=== PATIENT | female | born 1990 | race Hispanic/Latino ===

== ENCOUNTER 2016-05-29 17:45 | Emergency (ER) | payer OTHER ==
[~2016-05-29] VITALS: Ht 154.9 cm; Wt 80.0 kg
[2016-05-29 17:49] VITALS: BP 113/70; PULSE 89; RESP 10; O2SAT 100
[2016-05-29 19:33] VITALS: BP 130/72; PULSE 75; RESP 18; O2SAT 100
--- NOTE | 2016-05-29 20:27 | ED.REPORT ---
HPI-Rash / Abscess Date of Service May 29, 2016 ED Provider: Jacquie Barclay MD This is a 26 year old female presenting to the emergency department complaining of diffuse skin rash to chest and face that began yesterday. Associated with tactile fever and myalgias that began 2 days ago. Tylenol and ibuprofen provided mild relief. Pt took Claritin yesterday which provided complete relief. However, the rash returned today. Denies shortness of breath, difficulty swallowing, sore throat, or throat swelling. Denies changes in household products or exposure to new topical agents. Nursing Notes Stated Complaint: RASH STARTING YESTERDAY Chief Complaint: Allergic Reaction Nursing Notes Reviewed: Yes Allergies: Coded Allergies: No Known Allergies (Unverified , 05/29/16) Scheduled Prednisone (PredniSONE) 20 Mg Tablet 40 MG PO DAILY General Time Seen by MD: 19:51 Chief Complaint Rash Hx Obtained From: Patient Arrived By: Walk-in Onset Occurred: 2 days ago Symptom Duration: Since onset Severity: Current: No pain currently Pertinent Negative: Pt denies other symptoms Recent Healthcare: No recent doctor visit, No recent hospitalization Similar Sx Previous: No Past Medical History Past Medical History Denies Past Surgical History Denies Ambulatory Status Independent Review of Systems Constitutional: Reports: Fever, Denies: Chills Respiratory: Denies: Non-productive cough, Wheezing Cardiovascular: Denies: Chest pain GI: Denies: Abdominal pain, Nausea, Vomiting Musculoskeletal: Denies: Extremity pain Skin: Reports Itching, Reports Rash, Denies Swelling Complete sys rev & neg: except as marked. Physical Exam Initial Vital Signs Vital Signs (First) Date Time Temp Pulse Resp B/P Pulse Ox O2 Delivery O2 Flow Rate FiO2 05/29/16 17:49 37.2 89 10 113/70 100 Room Air Initial VS: Reviewed Head / Eyes: Atraumatic, Normocephalic, PERRL Neck: Supple, Non-tender, Full range of motion Cardiovascular: Regular rate & rhythm, Heart sounds normal, Intact distal pulses Abdomen / GI: Soft, Non-tender, No guarding, No rebound, No distention Extremities: Vascular intact, Neuro intact, No swelling, No tenderness Neurologic: Alert, Oriented, Nonfocal Psychiatric: Mood/affect normal, Behavior normal, Normal thought content General/Constitutional: Awake, Alert, No acute distress Skin: Warm Mild erythema to back of neck, chest, and face without edema. No excoriation. ENT: Airway patent, Mucous membranes moist, Pharynx NL Respiratory / Chest: Breath sounds NL, Breath sounds = bilat, No respiratory distress, No rales, No rhonchi, No wheezing Interpretation & Diagnostics Lab Results Interpretation Test 05/29/16 20:34 Hold Urine Received (Received) Re-Eval/Medical Decision Med Decision/Clinical Course 26-year-old female with no past medical history here with rash. Differential diagnosis includes but is not limited to contact dermatitis versus localized allergic reaction versus viral exanthem versus other dermatitis. Patient was given Benadryl in the emergency department with some but not complete resolution of her rash. She was given a prescription for prednisone and advised to take Benadryl at home until the rash resolved. She is aware and amenable to discharge at this time with follow-up with her primary care physician, has been given very strict return precautions. Re-Evaluation/Progress : Time of Eval: 22:26 Re-Evaluation/Progress Note: Re-checked, rash is resolved, plan for d/c, all questions addressed Counseled Regarding: Diagnosis, Need for follow-up, When/why to return to ED Discharge & Departure Impression: Primary Impression: Rash Disposition: Home Discharge Condition All VS Reviewed: Yes Condition: Stable Patient Instructions: Acute Rash (ED) Additional Instructions: Take prednisone as prescribed. Also take benadryl as needed. Follow-up with your primary care provider. Return to the emergency department for any new or worsening symptoms Referrals: NOPCP (PCP) Scribe Attestation Portions of this note were transcribed by Sosa Clark. I, Dr. Barclay personally performed the history, physical exam and medical decision-making; I reviewed and confirmed the accuracy of the information in the transcribed note. Signed by: milagro Alcantara. 05/29/2016, 23:00. Jacquie Barclay MD May 29, 2016 20:27 SOSA CLARK May 29, 2016 20:30
[2016-05-29] MEDS ORDERED: diphenhydrAMINE 50 mg Capsule PO ONE (20:30)
[2016-05-29] MEDS ORDERED: diphenhydrAMINE 25 mg Capsule PO ONE (20:55)
[2016-05-29 21:17] VITALS: BP 133/65; PULSE 87; RESP 18; O2SAT 100
[2016-05-29] MEDS ORDERED: PRE20 PO (22:27)
[2016-05-29 22:30] VITALS: PULSE 87; RESP 18; O2SAT 100
== END 2016-05-29 22:31 | disposition home or self-care (01) ==
LOC: SED 17:45
DX: R21 Rash and other nonspecific skin eruption (principal)